=== PATIENT | male | born 1985 | race Hispanic/Latino ===

== ENCOUNTER 2023-03-01 11:41 | Emergency (ER) | payer OTHER ==
[2023-03-01] MEDS ORDERED: Ketorolac Tromethamine 60 MG/2 ML VIAL ONE (12:07)
== END 2023-03-01 12:53 | disposition home or self-care (01) ==
LOC: MADERS 11:41
DX: M25.562 Pain in left knee (principal)
CPT/HCPCS: 96372; J1885